=== PATIENT | male | born 1970 | race Caucasian/White ===

== ENCOUNTER 2018-08-10 18:47 | Emergency (ER) | payer SELFPAY ==
[2018-08-10] MEDS ORDERED: LIDOCAINE 1% MPF 5 ML VIAL ONE (19:34)
--- NOTE | 2018-08-10 19:45 | ER ---
Nurse's Notes [facility] Name: Mario Pereyra Age: 48 yrs Sex: Male : 1970 Arrival Date: 08/10/2018 Time: 18:58 Bed 14 Private MD: Diagnosis: [place] stuck in right 2nd digit Presentation: 08/10 18:59 Presenting complaint: Patient states: Friday afternoon, my R index finger caught a 2 hj prong fish hook; pain 3/10;. Transition of care: patient was not received from another setting of care. Onset of symptoms was August 10, 2018. Risk Assessment: Do you want to hurt yourself or someone else? Patient reports no desire to harm self or others. Initial Sepsis Screen: Does the patient meet any 2 criteria? No. Patient's initial sepsis screen is negative. Does the patient have a suspected source of infection? No. Patient's initial sepsis screen is negative. Care prior to arrival: None. 18:59 Method Of Arrival: Ambulatory 18:59 Acuity: JUANJOSE 4 hj Triage Assessment: 19:02 General: Appears in no apparent distress. uncomfortable, Behavior is calm, cooperative, hj appropriate for age. Pain: Complains of pain in palmar aspect of distal phalanx of right index finger. Historical: - Allergies: 19:01 No Known Allergies; hj - Home Meds: 19:01 None [Active]; hj - PMHx: 19:01 None; hj - PSHx: 19:01 None; hj - Immunization history:: Adult Immunizations up to date. - Social history:: Smoking status: Patient uses tobacco products, Patient uses alcohol. - Ebola Screening: : Patient negative for fever greater than or equal to 101.5 degrees Fahrenheit, and additional compatible Ebola Virus Disease symptoms Patient denies exposure to infectious person Patient denies travel to an Ebola-affected area in the 21 days before illness onset. - Family history:: not pertinent. - Hospitalizations: : No recent hospitalization is reported. Screenin:02 Abuse screen: Denies threats or abuse. Denies injuries from another. Nutritional hj screening: No deficits noted. Tuberculosis screening: No symptoms or risk factors identified. Fall Risk None identified. Assessment: 19:25 General: Appears in no apparent distress. comfortable, Behavior is calm, cooperative, cc3 appropriate for age. Pain: Complains of pain in palmar aspect of proxima; phalanx of right index finger and right hand and palmar aspect of distal phalanx of right index finger. Neuro: Level of Consciousness is awake, alert, obeys commands, Oriented to person, place, time, situation, Appropriate for age. Cardiovascular: Denies chest pain. Respiratory: Airway is patent Respiratory effort is even, unlabored, Respiratory pattern is regular, symmetrical. GI: Abdomen is round non-distended. : No signs and/or symptoms were reported regarding the genitourinary system. EENT: No signs and/or symptoms were reported regarding the EENT system. Derm: Wound noted right hand and palmar aspect of distal phalanx of right index finger and palmar aspect of proxima; phalanx of right index finger. Musculoskeletal: Circulation, motion, and sensation intact. Range of motion: intact in all extremities. Injury Description: fish hook to right index finger. 20:10 Reassessment: Patient appears in no apparent distress at this time. Patient and/or cc3 family updated on plan of care and expected duration. Pain level reassessed. Patient is alert, oriented x 3, equal unlabored respirations, skin warm/dry/pink. Dr. Jarrell discharged the patient home with prescription given. No IV cannula in situ. Patient left ER vitally stable and ambulatory with his . Vital Signs: 19:02 BP 122 / 82; Pulse 107; Resp 18; Temp 99.5(O); Pulse Ox 98% on R/A; Weight 108.86 kg; hj Height 6 ft. 3 in. (190.50 cm); Pain 3/10; 20:05 BP 119 / 87; Pulse 101; Resp 18 S; Pulse Ox 98% on R/A; cc3 19:02 Body Mass Index 30.00 (108.86 kg, 190.50 cm) ED Course: 18:58 Patient arrived in ED. hj 19:00 Triage completed. hj 19:02 Arm band placed on right wrist. hj 19:03 Patient has correct armband on for positive identification. Placed in gown. Bed in low hj position. Call light in reach. Side rails up X 1. 19:19 Stanislaw Jarrell MD is Attending Physician. rn 19:21 Jen Ball is Primary Nurse. cc3 20:10 fish hook removal. Patient did not have IV access during this emergency room visit. cc3 Administered Medications: 19:24 CANCELLED (Duplicate Order): Lidocaine (1 %) 5 mg Infiltration once rn 19:35 Drug: Lidocaine (1 %) 1 vials {Note: given by Dr. 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 Exp: cc3 09/24/2020. Lot #: [id number]. } Route: IM; Site: right deltoid; 20:10 Follow up: Response: No adverse reaction cc3 Outcome: 19:45 Discharge ordered by . rn 20:10 Discharged to home ambulatory, with family. cc3 20:10 Condition: stable 20:10 Discharge instructions given to patient, family, Instructed on discharge instructions, follow up and referral plans. medication usage, Demonstrated understanding of instructions, follow-up care, medications, Prescriptions given X 1. 20:23 Patient left the ED. cc3 Signatures: Stanislaw Jarrell MD MD rn Joaquin, Henry, RN RN hj Cordel, Charlene cc3
--- NOTE | 2018-08-10 19:46 | EDPHYS ---
Physician Documentation [facility] Name: Mario Pereyra Age: 48 yrs Sex: Male : 1970 Arrival Date: 08/10/2018 Time: 18:58 Bed 14 Private MD: ED Physician Stanislaw Jarrell HPI: 08/10 19:40 This 48 yrs old Male presents to ER via Ambulatory with complaints of fish rn hook on R index finger. 19:40 The patient or guardian reports the patient has a suspected foreign body, right 2nd rn finger. The reported likely foreign body is a fishhook. Onset: The symptoms/episode began/occurred 2 day(s) ago. Current symptoms: foreign body sensation. The patient has not experienced similar symptoms in the past. The patient has not recently seen a physician. 19:40 Clean fishhook, was caught in laundry and stuck his finger. Has been "busy", so has had rn it in finger for almost 2 days.. Historical: - Allergies: 19:01 No Known Allergies; - Home Meds: 19:01 None [Active]; hj - PMHx: 19:01 None; - PSHx: 19:01 None; hj - Immunization history:: Adult Immunizations up to date. - Social history:: Smoking status: Patient uses tobacco products, Patient uses alcohol. - Ebola Screening: : Patient negative for fever greater than or equal to 101.5 degrees Fahrenheit, and additional compatible Ebola Virus Disease symptoms Patient denies exposure to infectious person Patient denies travel to an Ebola-affected area in the 21 days before illness onset. - Family history:: not pertinent. - Hospitalizations: : No recent hospitalization is reported. ROS: 19:40 Constitutional: Negative for fever, chills, and weight loss, MS/Extremity: + right 2nd rn digit fishhook Neuro: Negative for weakness, numbness, tingling Exam: 19:42 MS/ Extremity: Pulses equal, no cyanosis. Neurovascular intact. Full, normal range rn of motion. + right 2nd digit with fishhook distal tip of finger, no erythema or signs of infection Vital Signs: 19:02 BP 122 / 82; Pulse 107; Resp 18; Temp 99.5(O); Pulse Ox 98% on R/A; Weight 108.86 kg; hj Height 6 ft. 3 in. (190.50 cm); Pain 3/10; 20:05 BP 119 / 87; Pulse 101; Resp 18 S; Pulse Ox 98% on R/A; cc3 19:02 Body Mass Index 30.00 (108.86 kg, 190.50 cm) hj Procedures: 19:42 Foreign Body Removal: a fishhook, from the right palmar aspect of distal phalanx of rn right index finger, by using a hemostat, needle, Dressinx4s were used to dress the wound, The patient tolerated the removal well. Nerve block: (digital) of palmar aspect of proxima; phalanx of right index finger Medication: Lidocaine 1% without epinephrine Amount: 3 mls were injected, Effect: the patient's symptoms are improved, Set up for procedure. Performed by Stanislaw Jarrell MD Patient tolerated well. MDM: 19:19 Patient medically screened. rn 19:42 Data reviewed: vital signs, nurses notes, and as a result, I will discharge patient. rn Counseling: I had a detailed discussion with the patient and/or guardian regarding: the historical points, exam findings, and any diagnostic results supporting the discharge/admit diagnosis, the need for outpatient follow up, to return to the emergency department if symptoms worsen or persist or if there are any questions or concerns that arise at home. Response to treatment: the patient's symptoms have markedly improved after treatment, the patient's symptoms have resolved after treatment, and as a result, I will discharge patient. 08/10 19:39 Order name: Wound Care; Complete Time: 20:00 rn 08/10 19:39 Order name: Wound dressing; Complete Time: 20:00 rn Administered Medications: 19:24 CANCELLED (Duplicate Order): Lidocaine (1 %) 5 mg Infiltration once rn 19:35 Drug: Lidocaine (1 %) 1 vials {Note: given by Dr. Jarrell.} Volume: 5 ml; Route: cc3 Infiltration; 19:40 Drug: Augmentin 875 mg Route: PO; cc3 20:10 Follow up: Response: No adverse reaction cc3 19:45 Drug: Tetanus-Diphtheria Toxoid Adult 0.5 ml {[employer]: [employer]. Exp: cc3 09/24/2020. Lot #: [id number]. } Route: IM; Site: right deltoid; 20:10 Follow up: Response: No adverse reaction cc3 Disposition: 08/10/18 19:45 Discharged to Home. Impression: [place] stuck in right 2nd digit. - Condition is Stable. - Discharge Instructions: Foreign Body. - Prescriptions for Augmentin 875- 125 mg Oral Tablet - take 1 tablet by ORAL route every 12 hours for 10 days; 20 tablet. - Medication Reconciliation Form, Thank You Letter, Antibiotic Education, Prescription Opioid Use form. - Follow up: Private Physician; When: As needed; Reason: Recheck today's complaints, Re-evaluation by your physician. - Problem is new. - Symptoms have improved. Signatures: Stanislaw Jarrell MD MD rn Allen Martinez RN RN Jen Moe cc3 Corrections: (The following items were deleted from the chart) 19:24 19:23 Lidocaine (1 %) 5 mg Infiltration once ordered. rn rn 19:42 19:40 Constitutional: Negative for fever, chills, and weight loss, MS/Extremity: + rn right 2nd digit fishhook rn 20:23 19:45 08/10/2018 19:45 Discharged to Home. Impression: [place] stuck in right 2nd cc3 digit. Condition is Stable. Forms are Medication Reconciliation Form, Thank You Letter, Antibiotic Education, Prescription Opioid Use. Follow up: Private Physician; When: As needed; Reason: Recheck today's complaints, Re-evaluation by your physician. Problem is new. Symptoms have improved. rn
[2018-08-10] MEDS ORDERED: AMOX/K CLAV 875 MG TAB ONE (19:53)
[2018-08-10] MEDS ORDERED: TETANUS & DIPHTHERIA TOX,ADULT 0.5 ML VIAL ONE (19:54)
== END 2018-08-10 20:23 | disposition home or self-care (01) ==
LOC: ER 18:47
DX: S60.450A Superficial foreign body of right index finger, initial encounter (principal); Z72.0 Tobacco use; Z23 Encounter for immunization
CPT/HCPCS: 64450; 90714; 99283